=== PATIENT | male | born 1970 | race Caucasian/White ===

== ENCOUNTER 2023-07-23 10:45 | Inpatient (IN) | payer MEDICARE, MEDICAID ==
[2023-07-17 16:57] LABS: ALBUMIN 3.7 G/DL (3.4-5.0); ALKALINE PHOSPHATASE 48 IU/L (46-116); BLOOD UREA NITROGEN 18 MG/DL (7-18); CALCIUM 9.1 MG/DL (8.5-10.1); CHLORIDE 103 MMOL/L (99-107); CREATININE 1.06 MG/DL (0.60-1.10); PRE OP ALT 36 U/L (30-65); PRE OP ANION GAP 12 (8-16); PRE OP AST 21 U/L (10-37); PRE OP BILIRUB, TOTAL 0.3 MG/DL (0.0-1.0); PRE OP GLUCOSE 98 MG/DL (70-104); PRE OP POTASSIUM 4.1 MMOL/L (3.4-5.1); PRE OP SODIUM 140 MMOL/L (135-145); TOTAL CARBON DIOXIDE 25.4 MMOL/L (24-32); TOTAL PROTEIN 7.3 G/DL (6.4-8.2); eGFR 73 ML/MIN
[~2023-07-23] VITALS: Ht 175.3 cm; Wt 129.3 kg
[2023-07-23] VITALS (25 sets, daily range): BP systolic 118–147; BP diastolic 70–104; PULSE 61–91; RESP 9–18; TEMP 97.4–98; O2SAT 91–98
[~2023-07-23 10:45] MED LIST: AZEL137S4 BOTHNARES; FLO0.4C PO; FOLI1TAB27 PO; METH2.5T PO; OXYC-138 PO; PRED5TAB PO; ceFAZolin inj. 3,000 MG in normal saline 100ml IV soln 100 ML IV ONE; famotidine 20mg tablet PO ONE; ringers solution, lacted 1,000 ML IV SCH; tranexamic acid 650mg tablet PO ONE; vancomycin 1,500 MG in NS 300ml IV soln IV ONE
--- NOTE | 2023-07-23 11:00 | NUR ---
TOTAL JOINT CARE CHARTING: COMPLETED 5 HIBICLENS SHOWERS. STARTED MUPIROCIN OINTMENT 07/22/2023 R/T PHARMACY CLOSED OVER THE WEEKEND. DID READ THE BOOKLET AND OTHER MATERIALS. [facility] WNL. LEFT RADIAL PULSE STRONG AND MARKED. Addendum: 07/23/23 at 1323 by Yasmin Hogue RN Amended: Links added.
[2023-07-23 12:27] LABS: BASOPHILS # (AUTO) 0.1 X10'3 (0-0.2); BASOPHILS % (AUTO) 0.9 % (0-1); EOSINOPHILS # (AUTO) 0.1 X10'3 (0-0.9); EOSINOPHILS % (AUTO) 1.5 % (0-6); LYMPHOCYTES # (AUTO) 1.4 X10'3 (1.1-4.8); LYMPHOCYTES % (AUTO) 17.3 % (21-51); MEAN CORPUSCULAR HEMOGLOBIN 29.4 PG (27.0-31.0); MEAN CORPUSCULAR HGB CONC 33.4 g/dL (33.0-36.5); MEAN PLATELET VOLUME 8.8 FL (7.4-10.4); MONOCYTES # (AUTO) 0.5 X10'3 (0-0.9); MONOCYTES % (AUTO) 5.6 % (2-12); NEUTROPHILS # (AUTO) 6.3 X10'3 (1.8-7.7); NEUTROPHILS % (AUTO) 74.7 % (42-75); PRE OP HEMATOCRIT 45.2 % (42.0-52.0); PRE OP HEMOGLOBIN 15.1 g/dL (14.0-17.9); PRE OP PLATELET COUNT 223 X10'3 (140-440); PRE OP WHITE BLOOD COUNT 8.4 10'3 (4.8-10.8); RED BLOOD COUNT 5.14 X10'6 (4.70-6.10); RED CELL DISTRIBUTION WIDTH 15.4 % (11.5-14.5)
[2023-07-23] MEDS ORDERED: fentaNYL/PF 50MCG/1 ML 2ML syringe IV PRN ×4 (13:05→15:20)
[2023-07-23] MEDS ORDERED: morphine 4 MG/ML inj SYRINge IV PRN ×2 (13:05→15:20)
[2023-07-23] MEDS ORDERED: hydrALAZINE 20mg/ml inj. IV PRN ×2 (13:05→15:20)
[2023-07-23] MEDS ORDERED: ondansetron/PF 4mg/2ml inj IV PRN ×3 (13:05→16:05)
[2023-07-23] MEDS ORDERED: ringers solution, lacted 1,000 ML IV SCH ×2 (13:05→15:20)
[2023-07-23] MEDS ORDERED: morphine 2 MG/ML inj. syringe IV PRN ×2 (13:05→15:20)
[2023-07-23] MEDS ORDERED: labetalol 20mg/4ml (5mg/ml) syringe IV PRN ×2 (13:05→15:20)
[2023-07-23] MEDS ORDERED: ROPIVAcaine 0.5% (5mg/ml) 30ml vial ONE ×2 (13:44→15:05)
[2023-07-23] MEDS ORDERED: propofol inj 20 ML IV ONE ×2 (13:49→14:28)
[2023-07-23] MEDS ORDERED: midazolam 1 mg/ML 2ml injection ONE (13:50)
[2023-07-23] MEDS ORDERED: fentaNYL /PF 50mcg/ml 5ml ampule ONE (13:50)
[2023-07-23] MEDS ORDERED: dexamethasone sod phosphate 10mg/ml inj ONE (13:58)
[2023-07-23] MEDS ORDERED: LIDOcaine 2% (20mg/ml) 5ml vial ONE (13:58)
[2023-07-23] MEDS ORDERED: sevoflurane 250ml liquid IH ONE (13:58)
[2023-07-23] MEDS ORDERED: ondansetron/PF 4mg/2ml inj ONE (14:29)
[2023-07-23] MEDS ORDERED: acetaminophen 1,000mg/100ml IV 100 ML IV ONE (14:44)
[2023-07-23] MEDS ORDERED: ROPIVAcaine 0.2% (10 MG/5 ML) BOLUS INJECTION INTERSCALE PRN (15:20)
--- NOTE | 2023-07-23 15:43 | NUR ---
Received from OR via hospital bed, accompanied by Anesthesiologist Daniela and report given by Anesthesiolgist and LITTLE Patterson. Pt is sleeping, no s/sx pain or distress. 10L SM 100% o2 saturation. Left shoulder wrap and sling, CDI. Cold powdered pack placed on Left shoulder. Will continue to monitor.
[2023-07-23] MEDS ORDERED: naloxone 0.4 mg/ml inj IV PRN (16:05)
[2023-07-23] MEDS ORDERED: HYDROmorphone 1 mg/ml syringe IV PRN (16:05)
[2023-07-23] MEDS ORDERED: bisacodyl 10mg suppository rectal RC PRN (16:05)
[2023-07-23] MEDS ORDERED: oxyCODONE IR 5mg (immed. release) tablet PO PRN (16:05)
[2023-07-23] MEDS ORDERED: azelastine Nasal Spray bottle NS PRN (16:05)
[2023-07-23] MEDS ORDERED: magnesium hydroxide 30ml (MOM) UD suspension PO PRN (16:05)
[2023-07-23] MEDS ORDERED: oxyCODONE/APAP 10/325mg tablet PO PRN (16:05)
[2023-07-23] MEDS ORDERED: acetaminophen 325mg tablet PO PRN (16:05)
[2023-07-23] MEDS ORDERED: HYDROmorphone inj. 0.5 MG/0.5 ML DISP.SYRIN IV PRN (16:05)
[2023-07-23] MEDS ORDERED: methoTREXATE 2.5mg tablet PO SCH (16:05)
[2023-07-23] MEDS ORDERED: diphenhydrAMINE 25mg capsule PO PRN ×2 (16:05)
--- NOTE | 2023-07-23 17:53 | NUR ---
Report given to LITTLE Navarrete. Pt transferred with all belongings, bed locked and low and call light in reach. Family updated on transfer. VSS. Pt comfortable and states no distress and refused any more pain medications.
[2023-07-23] MEDS: potassium cl 20mEq in 1/2 NS 1,000 ML IV SCH (19:00)
[2023-07-23] MEDS: ROPIVAcaine 0.2%/PF PUMP/bolus 545 ML INTERSCALE SCH (19:00)
[2023-07-23] MEDS ORDERED: vancomycin/NS 1 GM ADD-VANTAGE 250 ML IV SCH (20:00)
[2023-07-23] MEDS ORDERED: sennosides 8.6mg tablet PO SCH (21:00)
[2023-07-23] MEDS: oxyCODONE IR 5mg (immed. release) tablet PO PRN (21:28)
[2023-07-23] MEDS: acetaminophen 325mg tablet PO SCH (21:29)
[2023-07-24] MEDS: ceFAZolin/D5W- 1GM premix 50 ML IV SCH ×2 (00:46→09:57)
[2023-07-24] MEDS: potassium cl 20mEq in 1/2 NS 1,000 ML IV SCH ×2 (00:51→05:03)
[2023-07-24] MEDS: acetaminophen 325mg tablet PO SCH (03:40)
[2023-07-24] MEDS: oxyCODONE IR 5mg (immed. release) tablet PO PRN ×2 (04:59→10:25)
[2023-07-24 06:00] VITALS: BP 115/65; PULSE 66; RESP 18; TEMP 98; O2SAT 96
[2023-07-24 07:15] LABS: BASOPHILS % (AUTO) 0.1 % (0-1); EOSINOPHILS % (AUTO) 0 % (0-6); HEMATOCRIT 42.4 % (42.0-52.0); HEMOGLOBIN 14.3 g/dl (14.0-17.9); LYMPHOCYTES # (AUTO) 1.2 X10'3 (1.1-4.8); LYMPHOCYTES % (AUTO) 8.6 % (21-51); MEAN CORPUSCULAR HEMOGLOBIN 29.6 PG (27.0-31.0); MEAN CORPUSCULAR HGB CONC 33.7 g/dL (33.0-36.5); MEAN CORPUSCULAR VOLUME 87.6 FL (78-98); MEAN PLATELET VOLUME 9.1 FL (7.4-10.4); MONOCYTES # (AUTO) 0.6 X10'3 (0-0.9); NEUTROPHILS # (AUTO) 12.1 X10'3 (1.8-7.7); NEUTROPHILS % (AUTO) 87.3 % (42-75); PLATELET COUNT 230 X10'3 (140-440); RED BLOOD COUNT 4.84 X10'6 (4.70-6.10); RED CELL DISTRIBUTION WIDTH 15.5 % (11.5-14.5); WHITE BLOOD COUNT 13.9 X10'3 (4.5-11.0)
--- NOTE | 2023-07-24 07:15 | NUR ---
Patient in room ORTHO 4017. I have received report from RENE LÓPEZ RN and had the opportunity to ask questions and assume patient care.
[2023-07-24 07:25] LABS: ANION GAP 11 (8-16); CHLORIDE 105 MMOL/L (99-107); SODIUM 137 MMOL/L (135-145); TOTAL CARBON DIOXIDE 21.5 MMOL/L (24-32)
[2023-07-24] MEDS ORDERED: folic acid 1mg tablet PO SCH (08:00)
[2023-07-24] MEDS ORDERED: predniSONE 5mg tablet PO SCH (08:00)
[2023-07-24] MEDS ORDERED: tamsulosin 0.4mg capsule PO SCH (08:00)
[2023-07-24] MEDS ORDERED: aspirin 325mg tablet PO SCH (08:30)
[2023-07-24] MEDS: ROPIVAcaine 0.2%/PF PUMP/bolus 545 ML INTERSCALE SCH (09:56)
[2023-07-24 11:00] VITALS: BP 139/88; PULSE 76; RESP 16; TEMP 98; O2SAT 96
--- NOTE | 2023-07-24 12:56 | NUR ---
Joint surgery consult: Pt s/p shoulder surgery per EMR. RD attempted to see pt for high protein nutrition education however pt was discharged early today. Mailed high protein nutrition handout to pt's address found in EMR with RD contact information for any nutrition questions or concerns. Addendum: 07/24/23 at [address] Amended: Links added.
--- NOTE | 2023-07-24 14:05 | NUR ---
pt is stable for dc, iv is dc cannula is intact, all dc info gone over and signed, all belongings taken, no meds in pharmacy, pt will follow up with md, pt was walked down to the lobby and left in a private vehicle with family.
[2023-07-25] MEDS ORDERED: acetaminophen 325mg tablet PO PRN (16:05)
== END 2023-07-24 12:05 | disposition home or self-care (01) | DRG 483 ==
LOC: PAS IN 10:45 → ORTHO 4S 17:54
PROVIDERS: ADMIT Orthopaedic Surgery; ATTEND Orthopaedic Surgery
PROC: 0RRK00Z Replacement of Left Shoulder Joint with Reverse Ball and Socket Synthetic Substitute, Open Approach (ICD-10-PCS; 2023-07-23)
PROC: 3E0T3BZ Introduction of Anesthetic Agent into Peripheral Nerves and Plexi, Percutaneous Approach (ICD-10-PCS; 2023-07-23)
PROC: 3E0T33Z Introduction of Anti-inflammatory into Peripheral Nerves and Plexi, Percutaneous Approach (ICD-10-PCS; 2023-07-23)
PROC: 0RPK0JZ Removal of Synthetic Substitute from Left Shoulder Joint, Open Approach (ICD-10-PCS; principal; 2023-07-23 13:58)
DX: M75.122 Complete rotator cuff tear or rupture of left shoulder, not specified as traumatic (principal); D62 Acute posthemorrhagic anemia; M19.012 Primary osteoarthritis, left shoulder; G89.29 Other chronic pain; M54.89 Other dorsalgia; Z96.612 Presence of left artificial shoulder joint; Z79.899 Other long term (current) drug therapy
CPT/HCPCS: 36415; 80051; 80053; 82948; 85025; 87070; 87075; 87081; 87102; 97110; 97161; 97530; A4565; A4618; A4620; A6258; A7000; C1713; C1776; G0378; J0131; J0690; J1100; J1170; J2250; J2405; J2704; J2795; J3010; J3370; J3480; J3490; J7120